=== PATIENT | female | born 1935 | race African-American/Black ===

== ENCOUNTER 2025-02-06 07:02 | Inpatient (IN) | payer OTHER ==
[2025-02-02 08:39] VITALS: BMI 38.4
[2025-02-06] MEDS ORDERED: BUPIVACAINE HCL/PF 0.5% (5 MG/ML) 30 ML VIAL IJ ONE (08:30)
[2025-02-06] MEDS ORDERED: BUPIVACAINE LIPOSOME/PF (EXPAREL) 266 MG/20 ML VIAL ONE (08:31)
[2025-02-06] MEDS ORDERED: ONDANSETRON 4 MG/2 ML VIAL IVPUSH PRN ×2 (08:51→12:26)
[2025-02-06] MEDS ORDERED: MIDAZOLAM HCL 2 MG/2 ML SINGLE DOSE VIAL ONE ×2 (08:58→11:08)
[2025-02-06] MEDS ORDERED: BUPIVACAINE HCL/PF 0.5% (5MG/ML) 10 ML VIAL ONE (08:59)
[2025-02-06] MEDS ORDERED: VANCOMYCIN 1,000 MG VIAL (RESTRICTED TO ID ONLY) ONE ×2 (09:04→10:37)
[2025-02-06] MEDS ORDERED: BUPIVICAINE 0.25%/MORPH PF/KETOROLAC - 51ML DISP.SYRINGE IA ONE (10:25)
[2025-02-06] MEDS ORDERED: DEXAMETHASONE SOD PHOSPHATE 4 MG/1 ML VIAL ONE (10:37)
[2025-02-06] MEDS ORDERED: SODIUM CHLORIDE 0.9% P/F 10 ML VIAL IJ ONE (10:37)
[2025-02-06] MEDS ORDERED: TRANEXAMIC ACID 1000 MG/10 ML VIAL ONE (10:37)
[2025-02-06] MEDS ORDERED: ceFAZolin SODIUM 1 GM VIAL ONE (10:37)
[2025-02-06] MEDS ORDERED: ONDANSETRON 4 MG/2 ML VIAL ONE (10:37)
[2025-02-06] MEDS: VANCOMYCIN 1,000 MG VIAL (RESTRICTED TO ID ONLY) IVPB ONE ×2 (11:48)
[2025-02-06] MEDS: BUPIVICAINE 0.25%/MORPH PF/KETOROLAC - 51ML DISP.SYRINGE IA ONE ×2 (12:00)
[2025-02-06] MEDS ORDERED: MAG HYDROX/AL HYDROX/SIMETH 30 ML UNIT-DOSE CUP PO PRN (12:26)
[2025-02-06] MEDS ORDERED: ACETAMINOPHEN 325 MG TABLET (FP) PO PRN (12:29)
[2025-02-06] MEDS ORDERED: ACETAMINOPHEN INJECTION 100 ML ONE (12:46)
[2025-02-06] MEDS: ACETAMINOPHEN 1000 MG/100 ML BAG IVPB ONE (12:50)
[2025-02-06] MEDS: LACTATED RINGERS SOLUTION 1,000 ML IV SCH ×2 (14:44)
[2025-02-06] MEDS: KETOROLAC TROMETHAMINE 15 MG/ML VIAL IVPUSH SCH (14:44)
[2025-02-06] MEDS: metFORMIN HCL 500 MG TABLET (FP) PO SCH (17:17)
[2025-02-06] MEDS: CEFAZOLIN 2 GM/D5W 2 GRAM/50 ML ML IVPB SCH (17:17)
[2025-02-06] MEDS: ACETAMINOPHEN 500 MG TABLET (FP) PO SCH (18:44)
[2025-02-06] MEDS: oxyCODONE HCL 5 MG TABLET PO PRN (20:47)
[2025-02-06] MEDS: SENNOSIDES/DOCUSATE COMBO (SENNA PLUS) TABLET (UD) PO SCH (23:46)
[2025-02-06] MEDS: oxyCODONE HCL 10 MG SUSTAINED ACTING TABLET PO SCH (23:46)
[2025-02-07 08:00] LABS: HEMATOCRIT 31.5 % (34.1-44.9); HEMOGLOBIN 10.1 g/dL (11.2-15.7); MCHC 32.1 g/dl (32.2-35.5); MEAN CELL VOLUME 85.8 fl (79.4-94.8); MEAN PLT VOLUME 9.2 fl (9.4-12.3); PLATELET COUNT 272 x10^3/uL (182-369); RDW 13.3 % (12.5-17.0)
[2025-02-07 08:22] LABS: CREATININE 0.7 mg/dl (0.6-1.3); POTASSIUM 4.3 mmol/L (3.5-5.1)
[2025-02-07] MEDS: PANTOPRAZOLE 40 MG TABLET PO SCH (10:52)
[2025-02-07] MEDS: ASPIRIN COATED 81 MG TABLET.EC PO SCH (11:00)
[2025-02-07] MEDS: VALSARTAN 160 MG TABLET PO SCH (11:00)
[2025-02-07] MEDS: oxyCODONE HCL 5 MG TABLET PO PRN (11:01)
[2025-02-07] MEDS: MULTIVITAMINS (DAILY MVI) TABLET (FP) PO SCH (11:01)
[2025-02-07] MEDS: CELECOXIB 100 MG CAPSULE PO SCH (11:03)
[2025-02-08] MEDS ORDERED: MAGNESIUM HYDROX 2400MG/30ML ORAL SUSPENSION 30 ML CUP PO PRN (07:52)
[2025-02-08] MEDS: GABAPENTIN 100 MG CAPSULE PO SCH (08:47)
[2025-02-08] MEDS ORDERED: traMADol HCL 50 MG TABLET PO PRN ×2 (13:16→21:55)
[2025-02-08] MEDS ORDERED: ACETAMINOPHEN 500 MG TABLET (FP) PO PRN (13:17)
[2025-02-08] MEDS ORDERED: METOPROLOL TARTRATE 5 MG/5 ML VIAL ONE (18:51)
[2025-02-08] MEDS: QUEtiapine FUMARATE 25 MG TABLET PO SCH (22:08)
[2025-02-08] MEDS: ACETAMINOPHEN 500 MG TABLET (FP) PO SCH (22:46)
[2025-02-08] MEDS: SODIUM CHLORIDE 1,000 ML IV SCH (22:46)
[2025-02-08] MEDS: ENOXAPARIN NA (PORCINE) 100 MG/1 ML DISP.SYRIN SQ SCH (22:47)
[2025-02-09 01:29] LABS: ABSOLUTE IMMATURE GRANULOCYTES 0.04 x10^3/uL (0.0-0.031); BASOPHILS # 0.03 x10^3/uL (0.01-0.08); EOSINOPHIL % 0.6 % (0.7-5.8); EOSINOPHILS # 0.05 x10^3/uL (0.04-0.36); HEMATOCRIT 33.9 % (34.1-44.9); HEMOGLOBIN 10.4 g/dL (11.2-15.7); MCHC 30.7 g/dl (32.2-35.5); MEAN CELL VOLUME 86.9 fl (79.4-94.8); MEAN PLT VOLUME 9.8 fl (9.4-12.3); MONOCYTE # 0.63 x10^3/uL (0.24-0.86); MONOCYTE % 7.3 % (4.7-12.5); PLATELET COUNT 252 x10^3/uL (182-369)
[2025-02-09 01:47] LABS: POTASSIUM 4.5 mmol/L (3.5-5.1)
[2025-02-09 01:49] LABS: ALBUMIN 2.8 g/dl (3.4-5.0)
[2025-02-09 01:50] LABS: BLOOD UREA NITROGEN 22.6 mg/dL (7-18)
[2025-02-09 01:53] LABS: CREATININE 1.1 mg/dL (0.55-1.3)
[2025-02-09 01:54] LABS: BILIRUBIN,TOTAL 0.6 mg/dL (0.2-1); TOT PROT 5.9 g/dl (6.4-8.2)
[2025-02-09] MEDS: METOPROLOL TARTRATE 5 MG/5 ML VIAL IVPUSH ONE (02:05)
[2025-02-09 07:22] LABS: ABSOLUTE IMMATURE GRANULOCYTES 0.06 x10^3/uL (0.0-0.031); BASOPHILS # 0.06 x10^3/uL (0.01-0.08); EOSINOPHIL % 0.6 % (0.7-5.8); EOSINOPHILS # 0.06 x10^3/uL (0.04-0.36); HEMATOCRIT 28.6 % (34.1-44.9); HEMOGLOBIN 8.6 g/dL (11.2-15.7); MCHC 30.1 g/dl (32.2-35.5); MEAN CELL VOLUME 87.7 fl (79.4-94.8); MEAN PLT VOLUME 9.5 fl (9.4-12.3); MONOCYTE # 0.84 x10^3/uL (0.24-0.86); MONOCYTE % 8.7 % (4.7-12.5); PLATELET COUNT 233 x10^3/uL (182-369); RDW 14.3 % (12.5-17.0)
[2025-02-09 07:39] LABS: CALCIUM 8.9 mg/dL (8.5-10.1)
[2025-02-09 07:40] LABS: ALBUMIN 2.4 g/dl (3.4-5.0); BLOOD UREA NITROGEN 21.8 mg/dL (7-18); MAGNESIUM 1.8 mg/dL (1.8-2.4)
[2025-02-09 07:43] LABS: CREATININE 0.9 mg/dL (0.55-1.3); PHOSPHOROUS 3.3 mg/dL (2.5-4.9)
[2025-02-09 07:44] LABS: BILIRUBIN,TOTAL 0.5 mg/dL (0.2-1)
[2025-02-09 07:45] LABS: TOT PROT 5.2 g/dl (6.4-8.2)
[2025-02-09] MEDS: CEFTRIAXONE 1 G/50 ML PREMIX 50 ML IVPB ONE (09:32)
[2025-02-09] MEDS: AZITHROMYCIN IVPB 500 MG/250 ML BAG IVPB ONE (09:33)
[2025-02-09 09:44] LABS: MAGNESIUM 1.5 mg/dL (1.8-2.4)
[2025-02-09] MEDS: IRON SUCROSE INJECTION 200 MG in SODIUM CHLORIDE 100 ML IVPB ONE (12:44)
[2025-02-09] MEDS: LACTULOSE 20 GM/30 ML UDC (FOR ORAL USE ONLY) PO ONE (17:36)
[2025-02-09] MEDS: LACTULOSE 20 GM/30 ML UDC (FOR RECTAL USE ONLY) PR ONE (17:36)
[2025-02-09] MEDS: ACETAMINOPHEN 1000 MG/100 ML BAG IVPB PRN (19:27)
[2025-02-10] MEDS: KETOROLAC TROMETHAMINE 30 MG/1 ML VIAL IVPUSH PRN (06:11)
[2025-02-10 09:19] LABS: ABSOLUTE IMMATURE GRANULOCYTES 0.08 x10^3/uL (0.0-0.031); BASOPHILS # 0.04 x10^3/uL (0.01-0.08); EOSINOPHIL % 2.7 % (0.7-5.8); HEMATOCRIT 28.1 % (34.1-44.9); HEMOGLOBIN 8.4 g/dL (11.2-15.7); MCHC 29.9 g/dl (32.2-35.5); MEAN CELL VOLUME 87.5 fl (79.4-94.8); MEAN PLT VOLUME 10.1 fl (9.4-12.3); MONOCYTE # 0.49 x10^3/uL (0.24-0.86); MONOCYTE % 6.5 % (4.7-12.5); PLATELET COUNT 260 x10^3/uL (182-369); RDW 14.3 % (12.5-17.0)
[2025-02-10 10:06] LABS: POTASSIUM 3.8 mmol/L (3.5-5.1)
[2025-02-10] MEDS ORDERED: ARTIFICIAL TEARS OPHTHALMIC DROPS OU PRN (10:06)
[2025-02-10] MEDS: metoPROLOL SUCCINATE 25 MG TAB.SR.24H (FP) PO SCH (10:24)
[2025-02-10 10:27] LABS: CALCIUM 8.9 mg/dL (8.5-10.1)
[2025-02-10 10:28] LABS: ALBUMIN 2.3 g/dl (3.4-5.0); MAGNESIUM 1.9 mg/dL (1.8-2.4)
[2025-02-10 10:30] LABS: CREATININE 0.6 mg/dL (0.55-1.3)
[2025-02-10 10:31] LABS: BILIRUBIN,TOTAL 0.4 mg/dL (0.2-1); TOT PROT 5.1 g/dl (6.4-8.2)
[2025-02-10 10:37] LABS: BLOOD UREA NITROGEN 17.2 mg/dL (7-18)
[2025-02-10] MEDS ORDERED: ACETAMINOPHEN 650 MG SUPP.RECT RC PRN (11:23)
[2025-02-10] MEDS: ACETAMINOPHEN 500 MG TABLET (FP) PO SCH (13:59)
[2025-02-10] MEDS: LACTULOSE 20 GM/30 ML UDC (FOR ORAL USE ONLY) PO ONE (16:24)
[2025-02-10] MEDS: INSULIN ASPART SLIDING SCALE (NOVOLOG) 1 VIAL SQ SCH (16:40)
[2025-02-10] MEDS: LACTULOSE 20 GM/30 ML UDC (FOR RECTAL USE ONLY) PR ONE (16:55)
[2025-02-11 09:02] VITALS: RESP 17
[2025-02-11] MEDS: ENOXAPARIN NA (PORCINE) 40 MG/0.4 ML DISP.SYRIN SQ SCH (09:56)
[2025-02-11 15:21] VITALS: BP 145/60; PULSE 69; TEMP 98.2
== END 2025-02-11 15:49 | DRG 469 ==
LOC: FASUSAT 07:02 → FM/S 14:13 → FASUSAT 15:33 → FM/S 02-07 00:48 → J4S 02-09 05:40
PROVIDERS: ADMIT Internal Medicine; ATTEND Internal Medicine
PROC: 0SRC0J9 Replacement of Right Knee Joint with Synthetic Substitute, Cemented, Open Approach (ICD-10-PCS; principal; 2025-02-06 10:28)
DX: M17.11 Unilateral primary osteoarthritis, right knee (principal); G93.41 Metabolic encephalopathy; I47.10 Supraventricular tachycardia, unspecified; J98.11 Atelectasis; N17.9 Acute kidney failure, unspecified; E11.9 Type 2 diabetes mellitus without complications; I10 Essential (primary) hypertension; D64.9 Anemia, unspecified; E83.42 Hypomagnesemia
CPT/HCPCS: 36415; 70450-TC; 71275-TC; 73560-TC-RT-FY; 80048; 80053; 82140; 82272; 82728; 82962; 83036; 83540; 83550; 83735; 84100; 84466; 84484; 85025; 85027; 85730; 88305-TC; 88311-TC; 93005; 93010; 93306-TC; 94010; 94760; 97116-GP; 97161-GP; C1776; C1889; J0131; J0666; J1756; Q9967